=== PATIENT | male | born 1990 | race African-American/Black ===

== ENCOUNTER 2021-02-13 12:11 | Emergency (ER) | payer OTHER ==
[~2021-02-13] VITALS: Ht 172.7 cm; Wt 101.6 kg
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
--- NOTE | 2021-02-13 12:45 | NUR ---
CT/X-Ray pending.
[2021-02-13] MEDS ORDERED: IBUP-1955 PO (13:43)
--- NOTE | 2021-02-13 14:02 | NUR ---
patient reassess sleeping chest x-ray resulted, CT result pending.
[2021-02-13 14:27] VITALS: BP 140/80
[2021-02-13] MEDS ORDERED: IBUPROFEN 600 MG TABLET PO ONE (14:30)
[2021-02-13] MEDS ORDERED: IBUPROFEN 600 MG TABLET ONE (14:58)
== END 2021-02-13 15:06 | disposition home or self-care (01) ==
LOC: ER 12:11
DX: S16.1XXA Strain of muscle, fascia and tendon at neck level, initial encounter (principal); V49.49XA Driver injured in collision with other motor vehicles in traffic accident, initial encounter; Y93.89 Activity, other specified; Y92.413 State road as the place of occurrence of the external cause; Y99.8 Other external cause status
CPT/HCPCS: 71045-TC; 72125-TC